=== PATIENT | female | born 1975 | race Caucasian/White ===

== ENCOUNTER 2016-03-09 11:00 | Outpatient (RCR) | payer SELFPAY ==
[2015-12-15 09:05] VITALS: BP 81/49
[~2016-03-09 11:00] MED LIST: AMOXICILLIN875 MG PO; ANTIBIOTIC; ATARAX 25MG25 MG/TAB PO; BACTRIM DS 8001 TA1 PO; BENADRYL25 MG PO; CEPHALEXIN500 M1 PO; CIPRO 500MG TA500 MG PO; COMPAZINE5 MG PO; CYCLOBENZAPRINE10 MG PO; CYCLOBENZAPRINE5 M1 PO; DICLOFENAC SOD75 MG PO; ELAVIL10 MG PO; EXCEDRIN1 TAB PO; FLAGYL500 MG PO; FLEXERIL 1010 MG/TAB PO; FLEXERIL10 MG PO; FLEXERIL5 MG PO; GABAPENTIN300 M1 PO; HYDROCORTISON28.4 GM TP; HYDROXYZINE HCL25 MG PO; IBUPROFEN800 MG PO; INDOCIN50 MG PO; KETOROLAC TROME10 MG PO; MEDROL 4MG DOSPA4 MG PO; MOBIC15 M1 PO; MOTRIN IB200 M1 PO; MOTRIN600 MG PO; MOTRIN800 MG PO; NATURAL IRON65 MG PO; NEURONTIN300 M1 PO; NEURONTIN300 MG PO; NEURONTIN300 MG/CAP PO; NO HOME MEDICATIONS; NORCO 325 MG-51 TA1 PO; NORCO 325 MG-51 TAB PO; NORCO 325 MG-7.1 TA1 PO; PERCOCET 325 MG1 TA2 PO; PREDNISONE10 MG PO; PREDNISONE20 MG PO; PROZAC10 M1 PO; PROZAC20 M1 PO; TYLENOL WITH CO1 TA1 PO; ZITHROMAX Z PA250 MG PO; ZOFRAN ODT8 M1 PO; ZYRTEC10 MG PO
== END 2016-05-09 | disposition home or self-care (01) ==
LOC: PT
DX: Z47.89 Encounter for other orthopedic aftercare (principal)

== ENCOUNTER 2017-05-10 12:03 | Emergency (ER) | payer SELFPAY ==
[~2017-05-10] VITALS: Ht 170.2 cm; Wt 61.4 kg
[2017-05-10] MEDS ORDERED: ORPHENADRINE C100 MG PO (14:13)
[2017-05-10] MEDS ORDERED: KETOROLAC10 MG PO (14:13)
[2017-05-10 14:32] VITALS: BP 91/52
== END 2017-05-10 14:38 | disposition home or self-care (01) ==
LOC: ED 12:03
DX: S56.912A Strain of unspecified muscles, fascia and tendons at forearm level, left arm, initial encounter (principal); V49.9XXA Car occupant (driver) (passenger) injured in unspecified traffic accident, initial encounter; Y92.414 Local residential or business street as the place of occurrence of the external cause; F17.210 Nicotine dependence, cigarettes, uncomplicated; Z88.5 Allergy status to narcotic agent

== ENCOUNTER 2017-07-12 19:26 | Emergency (ER) | payer SELFPAY ==
[~2017-07-12] VITALS: Ht 170.2 cm; Wt 65.5 kg
[~2017-07-12 19:26] MED LIST changes: +KETOROLAC10 MG PO; +ORPHENADRINE C100 MG PO
[2017-07-12 21:28] VITALS: BP 93/58
== END 2017-07-12 21:28 | disposition home or self-care (01) ==
LOC: ED 19:26
DX: G43.909 Migraine, unspecified, not intractable, without status migrainosus (principal); F17.200 Nicotine dependence, unspecified, uncomplicated; Z88.5 Allergy status to narcotic agent; F31.9 Bipolar disorder, unspecified
CPT/HCPCS: J1200; J1885; J2550; J7030

== ENCOUNTER 2017-08-07 12:56 | Emergency (ER) | payer SELFPAY ==
[2017-08-07 14:43] VITALS: BP 99/73
== END 2017-08-07 14:48 | disposition home or self-care (01) ==
LOC: ED 12:56
DX: M77.9 Enthesopathy, unspecified (principal); M79.632 Pain in left forearm; M25.522 Pain in left elbow; F17.200 Nicotine dependence, unspecified, uncomplicated
CPT/HCPCS: A4565

== ENCOUNTER 2017-09-13 17:15 | Emergency (ER) | payer SELFPAY ==
[~2017-09-13] VITALS: Ht 170.2 cm; Wt 65.0 kg
[2017-09-13 17:56] LABS: EOS # 0.2 (0.04-0.40); EOS % 3.1 % (1.0-5.0); HEMATOCRIT 29.9 % (37.0-47.0); LYMPH# 2.1 (1.50-4.00); MEAN CELL VOLUME 75 fl (78-100); MEAN CORPUSCULAR HGB CONC 30 g/dL (33-37); MEAN PLATELET VOLUME 11.5 fl (7.4-10.4); MONO # 0.5 (0.20-0.80); PLATELET COUNT 244 K/mm3 (130-400); RED BLOOD COUNT 4.01 M/mm3 (4.10-5.30); RED CELL DISTRIBUTION WIDTH 17.8 % (11.5-14.5); WHITE BLOOD COUNT 6.9 K/mm3 (4.8-10.8)
[2017-09-13 18:00] LABS: MEAN CORPUSCULAR HEMOGLOBIN 22 pg (27-31)
[2017-09-13 18:01] LABS: URINE APPEARANCE HAZY; URINE COLOR YELLOW; URINE PROTEIN(semi-quant) TRACE mg/dL (NEGATIVE)
[2017-09-13 18:02] LABS: URINE BILIRUBIN NEGATIVE (NEGATIVE); URINE BLOOD NEGATIVE (NEGATIVE); URINE GLUCOSE NEGATIVE (NEGATIVE); URINE KETONE NEGATIVE (NEGATIVE); URINE NITRATE NEGATIVE (NEGATIVE); URINE UROBILINOGEN NORMAL (NORMAL)
[2017-09-13 18:02] LABS: ALBUMIN 4.1 g/dL (3.5-5.0); BUN/CREATININE RATIO 11.2 (6.0-26.0); CALCIUM 8.5 mg/dL (8.4-10.2); POTASSIUM 3.8 mmol/L (3.6-5.0); TOTAL BILIRUBIN 0.2 mg/dL (0.2-1.3); TOTAL PROTEIN 7.2 g/dL (6.3-8.2)
[2017-09-13 18:05] LABS: URINE LEUKOCYTE ESTERASE 1+ (NEGATIVE)
[2017-09-13] MEDS ORDERED: CIPRO500 M1 PO ×2 (20:56→22:18)
[2017-09-13] MEDS ORDERED: NORCO 325 MG-51 TA1 PO (20:56)
[2017-09-13 21:05] VITALS: BP 104/64
== END 2017-09-13 21:05 | disposition home or self-care (01) ==
LOC: ED 17:15
PROVIDERS: Nurse Practitioner Primary Care
DX: M54.5 Low back pain (principal); N30.00 Acute cystitis without hematuria; F17.200 Nicotine dependence, unspecified, uncomplicated
CPT/HCPCS: J0696; J1885; J2270; J7030; Q9967

== ENCOUNTER 2017-09-29 19:46 | Emergency (ER) | payer SELFPAY ==
[~2017-09-29] VITALS: Ht 170.2 cm; Wt 61.4 kg
[~2017-09-29 19:46] MED LIST changes: +CIPRO500 M1 PO
[2017-09-29] MEDS ORDERED: SEPTRA DS 8001 TAB PO (20:20)
[2017-09-29 20:33] VITALS: BP 105/63
== END 2017-09-29 20:33 | disposition home or self-care (01) ==
LOC: ED 19:46
DX: T63.301A Toxic effect of unspecified spider venom, accidental (unintentional), initial encounter (principal); L02.416 Cutaneous abscess of left lower limb; F17.210 Nicotine dependence, cigarettes, uncomplicated; Z79.899 Other long term (current) drug therapy

== ENCOUNTER 2018-02-26 20:18 | Emergency (ER) | payer SELFPAY ==
[~2018-02-26] VITALS: Ht 170.2 cm; Wt 65.0 kg
[~2018-02-26 20:18] MED LIST changes: +SEPTRA DS 8001 TAB PO
[2018-02-26 21:50] VITALS: BP 122/70
== END 2018-02-26 21:50 | disposition home or self-care (01) ==
LOC: ED 20:18
DX: M79.672 Pain in left foot (principal); M25.572 Pain in left ankle and joints of left foot; F17.210 Nicotine dependence, cigarettes, uncomplicated; F31.9 Bipolar disorder, unspecified; Z79.899 Other long term (current) drug therapy

== ENCOUNTER 2019-12-10 22:16 | Emergency (ER) | payer SELFPAY ==
[~2019-12-10] VITALS: Ht 170.2 cm; Wt 65.0 kg
[2019-12-10] MEDS ORDERED: LEXAPRO 10MG10 MG PO (22:28)
[2019-12-10] MEDS ORDERED: LAMOTRIGINE25 M1 PO (22:28)
[2019-12-10] MEDS ORDERED: XANAX0.5 M1 PO (22:28)
[2019-12-10] MEDS ORDERED: CYCLOBENZAPRINE10 M1 PO (23:48)
[2019-12-11 00:09] VITALS: BP 108/71
== END 2019-12-11 00:09 | disposition home or self-care (01) ==
LOC: ED 22:16
DX: M54.5 Low back pain (principal); M54.16 Radiculopathy, lumbar region; F17.210 Nicotine dependence, cigarettes, uncomplicated; Z79.1 Long term (current) use of non-steroidal anti-inflammatories (NSAID); F32.9 Major depressive disorder, single episode, unspecified; X50.9XXA Other and unspecified overexertion or strenuous movements or postures, initial encounter; Y93.F2 Activity, caregiving, lifting
CPT/HCPCS: J1885

== ENCOUNTER 2021-08-23 17:30 | Emergency (ER) | payer SELFPAY ==
[~2021-08-23 17:30] MED LIST changes: +CYCLOBENZAPRINE10 M1 PO; +LAMOTRIGINE25 M1 PO; +LEXAPRO 10MG10 MG PO; +XANAX0.5 M1 PO
[2021-08-23 19:32] VITALS: BP 126/81
== END 2021-08-23 19:32 | disposition home or self-care (01) ==
LOC: ED 17:30
DX: M79.671 Pain in right foot (principal); R60.0 Localized edema; F17.200 Nicotine dependence, unspecified, uncomplicated; Z28.310 Unvaccinated for COVID-19

== ENCOUNTER 2021-11-26 18:46 | Emergency (ER) | payer SELFPAY ==
[~2021-11-26] VITALS: Ht 170.2 cm; Wt 68.2 kg
[2021-11-26] MEDS ORDERED: CYCLOBENZAPRINE10 M1 PO (21:14)
[2021-11-26] MEDS ORDERED: NORCO 325 MG-51 TA1 PO (21:14)
[2021-11-26 21:42] VITALS: BP 119/85
== END 2021-11-26 21:45 | disposition home or self-care (01) ==
LOC: ED 18:46
DX: M54.16 Radiculopathy, lumbar region (principal); G89.29 Other chronic pain; Z28.310 Unvaccinated for COVID-19
CPT/HCPCS: J1885; J2360